=== PATIENT | female | born 1960 ===

== ENCOUNTER 2025-09-13 10:58 | Outpatient (CLI) | payer MEDICARE | END 2025-09-13 10:59 | disposition home or self-care (01) | LOC: SCSMRI 10:58 | PROVIDERS: ATTEND Family Medicine Sports Medicine | DX: M75.101 Unspecified rotator cuff tear or rupture of right shoulder, not specified as traumatic (principal); S42.91XA Fracture of right shoulder girdle, part unspecified, initial encounter for closed fracture ==